=== PATIENT | male | born 1985 | race African-American/Black ===

== ENCOUNTER 2017-01-02 20:10 | Emergency (ER) | payer SELFPAY ==
[2017-01-02 20:38] LABS: #Basophils 0.1 thou/uL (0.0-0.2); #Lymphocytes 2.8 thou/uL (1.20-3.40); #Monocytes 0.6 thou/uL (0.11-0.59); #Neutrophils 2.5 thou/uL (1.40-6.50); %Basophils 1.5 % (0.0-1.0); %Eosinophils 0.4 % (0.0-10.0); %Monocytes 9.3 % (0.0-10.0); Hematocrit 39.5 % (42.0-52.0); Mean Platelet Volume 7.3 fL (7.4-10.4); Red Blood Cell (RBC) Count 4.22 mill/uL (4.70-6.10)
--- NOTE | 2017-01-02 20:56 | RAD ---
CHEST PA AND LATERAL: 01/02/17 HISTORY: 31-year-old male with history of left sided chest pain for one week. COMPARISON: 09/25/14. FINDINGS: Heart size is within normal limits. The lungs are clear. IMPRESSION: No acute intrathoracic disease. Stable from prior study. POS: CRISTOPHER
[2017-01-02 20:58] LABS: ALT (SGPT) 10 U/L (8-55); AST (SGOT) 19 U/L (5-34); Alkaline Phosphatase 187 U/L (40-150); Anion Gap 14 mmol/L (10-20); BUN (Urea Nitrogen) 8 mg/dL (8.9-20.6); Bilirubin, Total 0.4 mg/dL (0.2-1.2); Calc. Creatinine Clearance 0 mL/min (70-130); Calcium 9.5 mg/dL (7.8-10.44); Carbon Dioxide 26 mmol/L (22-29); Chloride 103 mmol/L (98-107); Estimated GFR-MDRD 89; Globulin 4.1 g/dL (2.4-3.5); Protein, Total 8.2 g/dL (6.0-8.3)
[2017-01-02 21:02] LABS: Troponin I Less than 0.010 ng/mL (< 0.028)
--- NOTE | 2017-01-04 12:25 | EKG ---
Test Reason : CHEST PAIN Blood Pressure : / mmHG Vent. Rate : 061 BPM Atrial Rate : 061 BPM P-R Int : 156 ms QRS Dur : 086 ms QT Int : 354 ms P-R-T Axes : 043 044 037 degrees QTc Int : 356 ms Normal sinus rhythm Normal ECG No specific ST-T segment abnormalities Normal axis Confirmed by MILAGROS DE LEON ([id number]), offline editor ARIELA COLBERT ([id number]) on 01/04/2017 12:24:49 PM Referred By: Confirmed By:MILAGROS DE LEON
== END 2017-01-02 22:59 | disposition home or self-care (01) ==
LOC: ERS 20:10
DX: R07.9 Chest pain, unspecified (principal); H10.9 Unspecified conjunctivitis; F32.9 Major depressive disorder, single episode, unspecified
CPT/HCPCS: 36415; 71020; 80053; 82553; 84484; 85025; 93005

== ENCOUNTER 2017-04-21 14:50 | Emergency (ER) | payer SELFPAY ==
[2017-04-21] MEDS ORDERED: predniSONE 20 MG TAB ONE (15:36)
[2017-04-21] MEDS ORDERED: Cyclobenzaprine 10 MG TAB ONE (15:36)
[2017-04-21] MEDS ORDERED: Ketorolac Tromethamine 30 MG/ML VIAL ONE (15:36)
--- NOTE | 2017-04-21 16:50 | RAD ---
THREE VIEWS LUMBAR SPINE: Date: 04-21-17 History: Low back pain when setting. FINDINGS: There are five non-rib bearing lumbar type vertebral bodies. The vertebral body heights and intervert ebral disc spaces are within normal limits. There is no evidence of a fracture or subluxation. No oth er findings. IMPRESSION: No acute osseous abnormality involving the lumbar spine. POS: [facility]
== END 2017-04-21 16:50 | disposition home or self-care (01) ==
LOC: ERS 14:50
DX: M54.5 Low back pain (principal)
CPT/HCPCS: 72100; 96372; J1885; J7506

== ENCOUNTER 2021-03-17 14:35 | Emergency (ER) | payer SELFPAY ==
[2021-03-17] MEDS ORDERED: Bacitracin 1 PK ONE ×2 (15:10→16:03)
[2021-03-17] MEDS ORDERED: Acetaminophen 500 MG TAB ONE (15:10)
[2021-03-17] MEDS ORDERED: Ketorolac Tromethamine 30 MG/ML VIAL ONE (15:10)
[2021-03-17] MEDS ORDERED: Proparacaine 0.5% Opth 15 ML BOT ONE (15:29)
[2021-03-17] MEDS ORDERED: Fluorescein Opthalmic Strip ONE (15:29)
== END 2021-03-17 16:51 | disposition home or self-care (01) ==
LOC: ERS 14:35
DX: T20.20XA Burn of second degree of head, face, and neck, unspecified site, initial encounter (principal); T26.01XA Burn of right eyelid and periocular area, initial encounter; Y26.XXXA Exposure to smoke, fire and flames, undetermined intent, initial encounter
CPT/HCPCS: 96372; 99283; J1885

== ENCOUNTER 2023-02-24 02:10 | Inpatient (IN) | payer SELFPAY ==
[2023-02-24 02:58] LABS: #Monocytes 0.5 thou/uL (0.11-0.59); %Basophils 0.2 % (0.0-1.0); %Lymphocytes 25.1 % (21.0-51.0); %Monocytes 7.7 % (0.0-10.0); %Neutrophils 66.8 % (42.0-75.0); Hematocrit 44.9 % (42.0-52.0); Mean Corpuscular HGB CONC 33.4 g/dL (32.0-36.0); Mean Corpuscular Hemoglobin 29.4 pg (27.0-31.0); Mean Corpuscular Volume 87.9 fl (78.0-98.0); Mean Platelet Volume 9.8 fL (7.4-10.4); Platelet Count 222 10x3/uL (130-400); RBC Distribution Width 12.3 % (11.5-14.5); Red Blood Cell (RBC) Count 5.11 mill/uL (4.70-6.10)
[2023-02-24] MEDS ORDERED: Metoclopramide HCl 10 MG/2 ML VIAL ONE (03:07)
[2023-02-24] MEDS ORDERED: diphenhydrAMINE 50 MG/ML VIAL ONE (03:07)
[2023-02-24 03:21] LABS: ALT (SGPT) 18 U/L (8-55); AST (SGOT) 22 U/L (5-34); Albumin 4.4 g/dL (3.5-5.0); Alkaline Phosphatase 94 U/L (40-110); Anion Gap 15 mmol/L (10-20); BUN (Urea Nitrogen) 7 mg/dL (8.9-20.6); Bilirubin, Total 0.4 mg/dL (0.2-1.2); Calc. Creatinine Clearance 0 mL/min (70-130); Calcium 9.6 mg/dL (7.8-10.44); Carbon Dioxide 28 mmol/L (22-29); Chloride 100 mmol/L (98-107); Estimated GFR 95; Globulin 4.4 g/dL (2.4-3.5); Glucose 103 mg/dL (70-105); Protein, Total 8.8 g/dL (6.0-8.3); Sodium 139 mmol/L (136-145)
[2023-02-24] MEDS ORDERED: Proparacaine 0.5% Opth 15 ML BOT ONE (03:40)
[2023-02-24] MEDS ORDERED: Fluorescein Opthalmic Strip ONE (03:40)
[2023-02-24] MEDS ORDERED: Midazolam HCl 2 mg/2 ml Vial ONE (04:12)
[2023-02-24 06:16] LABS: CSF Source CSF; Clarity Clear (Clear); Tube # 4
[2023-02-24 06:18] LABS: Cell Count Non Hematic 3 %; Lymphocytes 28 %; Segmented Neutrophils 69 %
[2023-02-24 06:19] LABS: CSF Source CSF; Clarity Clear (Clear); Tube # 1
[2023-02-24 06:28] LABS: Cell Count Non Hematic 11 %; Lymphocytes 23 %; Segmented Neutrophils 66 %
[2023-02-24] MEDS ORDERED: Sodium Chloride 0.9% 100 ML ONE (06:40)
[2023-02-24] MEDS ORDERED: cefTRIAXone (ROCEPHIN) 2 GM VIAL ONE (06:40)
[2023-02-24 06:42] LABS: CSF, Glucose 66 mg/dl (40-70); CSF, Protein 47 mg/dL (15-40)
[2023-02-24 06:46] LABS: Color Of CSF Supernatant COLORLESS (Colorless); Tube # 2; Unspun CSF Color COLORLESS (Colorless)
[2023-02-24] MEDS ORDERED: Ondansetron ODT 4 MG TAB PO PRN (07:50)
[2023-02-24] MEDS ORDERED: Ondansetron PF 4 MG/2 ML Vial IVP PRN (07:50)
[2023-02-24] MEDS ORDERED: HYDROcodone/Acetaminophen 5/325 mg Tablet PO PRN (07:52)
[2023-02-24 07:53] LABS: SARS-CoV-2 NAA Rapid Test Not Detected (NotDetected)
[2023-02-24] MEDS ORDERED: Acyclovir Sodium 800 MG in Sodium Chloride 0.9% 250 ML 250 ML IVPB SCH ×2 (08:00→15:00)
[2023-02-24] MEDS ORDERED: Vancomycin 1 GM in Premix 1 BAG IVPB SCH (08:00)
[2023-02-24] MEDS ORDERED: SODIUM CHLORIDE 0.9% IVPB SCH (08:00)
[2023-02-24] MEDS ORDERED: Vancomycin 2.5 GM in Sodium Chloride 0.9% 500 ML IVPB SCH ×2 (08:00→15:00)
[2023-02-24] MEDS ORDERED: VANCOMYCIN IVPB SCH (08:00)
[2023-02-24 09:06] VITALS: BMI 24.8
[2023-02-24] MEDS ORDERED: VANCOMYCIN IVPB PRN (09:59)
[2023-02-24] MEDS ORDERED: Famotidine 20 MG TAB ONE (10:11)
[2023-02-24] MEDS: Famotidine 20 MG TAB PO SCH ×2 (10:16→20:46)
[2023-02-24] MEDS ORDERED: HYDROcodone/Acetaminophen 5/325 mg Tablet ONE (10:18)
[2023-02-24] MEDS: Acetaminophen 325 MG TAB PO PRN ×2 (12:33→18:37)
[2023-02-24] MEDS: Acyclovir Sodium 800 MG in Sodium Chloride 0.9% 250 ML 250 ML IVPB SCH ×2 (14:10→21:05)
[2023-02-24] MEDS: HYDROcodone/Acetaminophen 5/325 mg Tablet PO PRN ×2 (15:23→22:26)
[2023-02-24] MEDS ORDERED: Vancomycin (BATCH) 1.25 GM in Premix 1 BAG IVPB SCH (20:00)
[2023-02-25] MEDS: Acyclovir Sodium 800 MG in Sodium Chloride 0.9% 250 ML 250 ML IVPB SCH ×3 (05:47→21:46)
[2023-02-25 06:57] LABS: Hematocrit 36.4 % (42.0-52.0); Hemoglobin 12.2 g/dL (14.0-18.0); Manual Diff?? YES; Mean Corpuscular HGB CONC 33.5 g/dL (32.0-36.0); Mean Corpuscular Volume 89.7 fl (78.0-98.0); Mean Platelet Volume 9.4 fL (7.4-10.4); Platelet Count 215 10x3/uL (130-400); RBC Distribution Width 12.6 % (11.5-14.5); Red Blood Cell (RBC) Count 4.06 mill/uL (4.70-6.10); White Blood Cell (WBC) Count 3.8 10x3/uL (4.8-10.8)
[2023-02-25 07:11] LABS: Delete Auto Diff?? YES
[2023-02-25] MEDS ORDERED: cefTRIAXone\\ROCEPHIN 2 GM in Sodium Chloride 0.9% 100 ML IVPB SCH (08:00)
[2023-02-25 08:04] LABS: Band 3 % (5-11); CellaVision Operator ID LAB.GE; Eosinophils 1 % (0-10); Large Platelets 8.9 % (0-5); Lymphocytes 50 % (21-51); Monocytes 12 % (0-10); Neutrophil 19 % (42-75); Platelet Adequacy Comment Platelets Normal; Polychromasia SLIGHT = 2-3 cells HPF (0-2); Reactive Lymphocytes 15 % (0-10); Total Cell Count 101
[2023-02-25] MEDS: HYDROcodone/Acetaminophen 5/325 mg Tablet PO PRN ×2 (09:09→18:31)
[2023-02-25] MEDS: Famotidine 20 MG TAB PO SCH ×2 (09:09→21:46)
[2023-02-26] MEDS: Acyclovir Sodium 800 MG in Sodium Chloride 0.9% 250 ML 250 ML IVPB SCH ×3 (06:11→21:26)
[2023-02-26] MEDS: Famotidine 20 MG TAB PO SCH ×2 (09:22→21:25)
[2023-02-27] MEDS: Acyclovir Sodium 800 MG in Sodium Chloride 0.9% 250 ML 250 ML IVPB SCH (05:38)
[2023-02-27] MEDS: Famotidine 20 MG TAB PO SCH (09:10)
[2023-02-27 12:36] VITALS: BP 118/79; TEMP 98.2
== END 2023-02-27 14:36 | disposition home or self-care (01) | DRG 76 ==
LOC: ERS 02:10 → SUATTDRO 02:10 → ERHOLD 07:43 → T4-A 12:15
PROVIDERS: ADMIT Internal Medicine; ATTEND Internal Medicine
PROC: 009U3ZX Drainage of Spinal Canal, Percutaneous Approach, Diagnostic (ICD-10-PCS; principal; 2023-02-24)
DX: B00.3 Herpesviral meningitis (principal); F17.210 Nicotine dependence, cigarettes, uncomplicated; Z11.52 Encounter for screening for COVID-19; H53.149 Visual discomfort, unspecified; K13.70 Unspecified lesions of oral mucosa
CPT/HCPCS: 36415; 62270; 70450; 80053; 82945; 84157; 85025; 85060; 87070; 87205; 87252; 87498; 87804; 89051; 93005; 96365; 96366; 96367; 96375; J0133; J0696; J1200; J1650; J2250; J2765; J3370; J3490; J7030; J7050; U0002

== ENCOUNTER 2023-12-23 07:33 | Emergency (ER) | payer SELFPAY ==
[2023-12-23] MEDS ORDERED: Lidocaine 1% w/Epinephrine 1:100K 20 ML VIAL ONE (08:19)
== END 2023-12-23 09:02 | disposition home or self-care (01) ==
LOC: ERS 07:33
DX: L91.8 Other hypertrophic disorders of the skin (principal); F17.210 Nicotine dependence, cigarettes, uncomplicated
CPT/HCPCS: 99283